=== PATIENT | female | born 1995 | race Caucasian/White ===

== ENCOUNTER → 2018-11-29 16:27 | Outpatient (CLI) | payer BC, SELFPAY ==
[2018-11-29 18:39] LABS: Internal QC Validated? YES +Cl - CLEAR BKGD; Pregnancy, Urine Negative Negative
--- OUTSIDE RECORDS SUMMARY | 2019-02-03 07:51 | XMS RPT_ITS ---
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 / Repository Z79.899(ICD-10) 11/29/2018 Unknown L23.3 - Allergic Kam Payton Active [facility] contact Community dermatitis due to Hospital drugs in contact Repository with skin / L23.3(ICD-10) 11/29/2018 Unknown L24.9 - Irritant Kam Payton Active [facility] contact [facility] dermatitis, Hospital unspecified cause Repository / L24.9(ICD-10) PROCEDURES PROCEDURES No Procedure Records FoundRESULTS RESULTS ,URINE Collected: 11/29/2018 Status: F Source: [place] 4:37 PM [facility] REPOSITORY TYPE CODE TESTS RESULT OUT OF REFERENCE UNITS RANGE LAB L400.8000 Negative Normal HCGUQUAL Negative Result Comment: Very dilute urine specimens, as indicated by a low specific gravity, may not contain call center representative levels of hCG. If is still suspected, a first morning urine specimen should be collected 48 hours later and tested. Performed By: #### L400.7600 #### [facility] [address] [place], [address] CNOV Observed: 07/17/2018 Status: COMPLETED Source: [place] 3:20 PM [facility] REPOSITORY Office Visit (WOOB) THUY FORDE ([id number]) 1995 F Date Time Provider Department 07/17/18 3:20 PM NICOLE PERDOMO During your visit today, we recorded the following information about you: Blood pressure Weight Last Period 102/64 71.7 kg 06/28/18 Nicole Scott MD 07/17/2018 3:43 PM Signed Thuy Forde presents today for IUD insertion for contraception. No LMP recorded. GC/chlamydia: Not done: no risk factors and/or patient declines screening test: negative Side effects including irregular bleeding were discussed with the patient. She understands that it should be removed in 5 years or sooner if she desires a . IUD source: office provided IUD lot #: [id number] Exp date: 12/2020 UNIVERSAL PROTOCOL / SAFETY CHECKLIST Procedure to be performed: IUD insertion Sign in Communication: Completed Time Out: Team Confirms the Correct Patient, Correct Procedure, Correct Site and Site Marking, Correct Position (if applicable), Prep and Dry Time (if applicable). Time: Affirmation of Time Out: YES Sign Out Discussion: Completed The uterus sounded to 8 cm and the uterus is Anteverted.. After prepping the cervix with betadine and using sterile technique, the Mirena IUD was inserted without difficulty and the string was cut to 2.5cm from the external os of the cervix. Patient tolerated procedure well. PLAN: Patient was advised to observe for signs and symptoms of infection including but not limited to fever, malodorous vaginal discharge and/or pain. She was told to check the string monthly for accurate placement. Bleeding expectations were reviewed. Follow up in one month at [facility] . MD Cherie Vega Ma 07/17/2018 3:15 PM Signed POST IUD INSTRUCTIONS You may have irregular bleeding during the first 3 months of use. You may have mild-severe cramping for the next 48 hours. You may use over the counter medication (Motrin, Tylenol) as needed. Your IUD must be removed or replaced in 3 years if you have a Tiffany, 5 years if you have a Mirena or Kyleena and 10 years if you have a Paragard. Call my office for signs/symptoms of infection such as severe cramping, fever, or unusual bleeding. Check for string placement as instructed by your doctor. If you have any additional questions, please contact the office. Referring Provider: NICOLE PERDOMO [[id number]] Allergies As of Date: 07/17/2018 (No Known Allergies) Date Reviewed: 07/17/2018 Reviewed by: Cherie Sandoval Ma - Fully Assessed Reason for Visit: Insertion Of IUD [291] Primary Visit Diagnosis:Encounter for IUD insertion [Z30.430] Other Visit Diagnosis:Pre-op testing [Z01.818] Order(s):HCG QUAL UR B/O [6702455] Order #: [id number] INSERT INTRAUTERINE DEVICE [[id number]] Order #: [id number] [] levonorgestrel 20 mcg/24 hr (5 years) 1 Each intrauterine device (MIRENA)Disp: Rfl: Problem List As Of Date: 07/17/2018 (None) Other instructions from your clinician: POST IUD INSTRUCTIONS You may have irregular bleeding during the first 3 months of use. You may have mild-severe cramping for the next 48 hours. You may use over the counter medication (Motrin, Tylenol) as needed. Your IUD must be removed or replaced in 3 years if you have a Tiffany, 5 years if you have a Mirena or Kyleena and 10 years if you have a Paragard. Call my office for signs/symptoms of infection such as severe cramping, fever, or unusual bleeding. Check for string placement as instructed by your doctor. If you have any additional questions, please contact the office. Prescriptions ordered this encounter Disp Refills Start End LEVONORGESTREL 20 MCG/24 HR (5 YEARS* 07/17/2018 07/17/2018 Route: INTRAUTERINE Encounter Status:Closed by NICOLE NUÑEZ MD on 07/17/18 PROGRESS Observed: 07/17/2018 Status: COMPLETED Source: [place] 3:15 PM [facility] REPOSITORY HNO ID: [id number] Author: Nicole Nuñez Service: (none) Author Type: Physician Type: Progress Notes Filed: 07/17/2018 3:43 PM Note Text: Thuy Forde presents today for IUD insertion for contraception. No LMP recorded. GC/chlamydia: Not done: no risk factors and/or patient declines screening test: negative Side effects including irregular bleeding were discussed with the patient. She understands that it should be removed in 5 years or sooner if she desires a . IUD source: office provided IUD lot #: [id number] Exp date: 12/2020 UNIVERSAL PROTOCOL / SAFETY CHECKLIST Procedure to be performed: IUD insertion Sign in Communication: Completed Time Out: Team Confirms the Correct Patient, Correct Procedure, Correct Site and Site Marking, Correct Position (if applicable), Prep and Dry Time (if applicable). Time: Affirmation of Time Out: YES Sign Out Discussion: Completed The uterus sounded to 8 cm and the uterus is Anteverted.. After prepping the cervix with betadine and using sterile technique, the Mirena IUD was inserted without difficulty and the string was cut to 2.5cm from the external os of the cervix. Patient tolerated procedure well. PLAN: Patient was advised to observe for signs and symptoms of infection including but not limited to fever, malodorous vaginal discharge and/or pain. She was told to check the string monthly for accurate placement. Bleeding expectations were reviewed. Follow up in one month at [facility] . Nicole Scott MD Observed: 07/08/2018 Status: F Source: [place] CYTOLOGY 12:00 AM [facility]FER[facility] REPOSITORY Specimen #: [id number] Submitting Physician: NICOLE NUÑEZ SPECIMEN SUBMITTED A: CERVICAL, SCREENING, FLUID FINAL DIAGNOSIS A. CERVICAL, SCREENING, FLUID Satisfactory for interpretation. Negative for intraepithelial lesion or malignancy. This specimen has been analyzed by the ThinPrep Imaging System, an automated imaging and review system, which assists the laboratory in evaluating cells on ThinPrep Pap tests. Following automated imaging, selected griffith from every slide are reviewed by a lockstitch lining setter. ÁLVARO Guan(ASCP) (Electronic Signature) CLINICAL DATA Date of Last Menstrual Period: 06/28/2018 Clinical History: ROUTINE Additional Testing: Reflex HPV testing for ASCUS STAINS A: CERVICAL, SCREENING, FLUID THIN PREP CHIEF DESIGN DRAFTER Ana Dumont M.D., Salvage Determiner Patient ID #: Date of Report: 07/12/2018 Date of Procedure: 07/08/2018 Date of Receipt: 07/10/2018 Submitted by: NICOLE NUÑEZ Location: Diagnostic interpretation performed at [facility], [address] [place] [address]. The Pap Smear is a screening test for cervical cancer. False negative results occur with all screening tests, emphasizing the need for rescreening at recommended intervals, and clinical correlation. Performed By: #### C #### See report for performing lab information. ALLERGIES ALLERGIES No Allergies Records FoundENCOUNTERS ENCOUNTERS ADMIT/DISCHARGE ACCOUNT ADMITTING ENCOUNTER LOCATION SOURCE NUMBER CLASS 11/29/2018 [id number] [facility] ing:[facility] Repository 07/17/2018/07/20/[id number] [place] Repository PAYERS PAYERS ENCOUNTER GUARANTOR PAYER SUBSCRIBER SOURCE 11/29/2018 THUY B[facility] [id number] Insurance:ANTHEM OUT STRANGEDOB: [facility] [address], [facility] [id number] [place] [address]Vzw: Number: Repository [id number] (HP) Date:[id number], [place] [address]OT: 11/29/2018 Secondary NOT GIVENUNK [facility] Insurance:SELF PAY [facility] Number: Effective Repository Date:2018-11-29
== END ==
PROVIDERS: Referring Provider Dermatology; Visit Provider Dermatology
DX: L70.0 Acne vulgaris (principal); L70.5 Acne excoriee; Z79.899 Other long term (current) drug therapy; L23.3 Allergic contact dermatitis due to drugs in contact with skin; L24.9 Irritant contact dermatitis, unspecified cause
CPT/HCPCS: 81025

== ENCOUNTER → 2019-01-07 10:58 | Outpatient (CLI) | payer BC, SELFPAY ==
[2019-01-07 12:57] LABS: Internal QC Validated? YES +Cl - CLEAR BKGD; Pregnancy, Urine Negative Negative
== END ==
PROVIDERS: Referring Provider Dermatology; Visit Provider Dermatology
DX: L70.0 Acne vulgaris (principal); L70.5 Acne excoriee; L23.3 Allergic contact dermatitis due to drugs in contact with skin; L24.9 Irritant contact dermatitis, unspecified cause; Z79.899 Other long term (current) drug therapy
CPT/HCPCS: 81025

== ENCOUNTER → 2019-03-25 | Outpatient (CLI) | payer BC, SELFPAY ==
[2019-03-25 13:58] LABS: Internal QC Validated? YES +Cl - CLEAR BKGD; Pregnancy, Urine Negative Negative
== END | disposition home or self-care (01) ==
LOC: MTLAB 11:23
PROVIDERS: Referring Provider Dermatology; Visit Provider Dermatology
DX: L70.0 Acne vulgaris (principal); L30.8 Other specified dermatitis; Z79.899 Other long term (current) drug therapy; L23.3 Allergic contact dermatitis due to drugs in contact with skin; L70.5 Acne excoriee; Z71.89 Other specified counseling
CPT/HCPCS: 81025